=== PATIENT | male | born 1955 | race Caucasian/White ===

== ENCOUNTER 2016-12-23 16:18 | Emergency (ER) | payer OTHER, MEDICARE, BC ==
[2016-12-23 16:58] VITALS: BP 158/94
[2016-12-23] MEDS ORDERED: HYDROmorphone 1 MG/ML Syringe IM ONE (18:20)
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
== END 2016-12-23 19:37 | disposition home or self-care (01) ==
LOC: JP.ED 16:18
DX: S04.52XA Injury of facial nerve, left side, initial encounter (principal); S40.012A Contusion of left shoulder, initial encounter; S00.83XA Contusion of other part of head, initial encounter; E78.00 Pure hypercholesterolemia, unspecified; I25.10 Atherosclerotic heart disease of native coronary artery without angina pectoris; I10 Essential (primary) hypertension; J44.9 Chronic obstructive pulmonary disease, unspecified; K21.9 Gastro-esophageal reflux disease without esophagitis; F41.9 Anxiety disorder, unspecified; F17.210 Nicotine dependence, cigarettes, uncomplicated; F32.9 Major depressive disorder, single episode, unspecified; Z95.5 Presence of coronary angioplasty implant and graft; Z98.890 Other specified postprocedural states; Z88.8 Allergy status to other drugs, medicaments and biological substances; V89.2XXA Person injured in unspecified motor-vehicle accident, traffic, initial encounter
CPT/HCPCS: 70486; 72170; 73030; 96372; 99284; J1170